=== PATIENT | male | born 1960 | race Caucasian/White ===

== ENCOUNTER 2024-08-02 22:14 | Emergency (ER) | payer BC ==
[~2024-08-02] VITALS: Ht 177.8 cm; Wt 90.7 kg
[2024-08-03 00:21] VITALS: BP 122/76; TEMP 98; O2SAT 98
== END 2024-08-03 00:22 | disposition home or self-care (01) ==
LOC: ER 22:14
DX: T83.012A Breakdown (mechanical) of nephrostomy catheter, initial encounter (principal); C64.9 Malignant neoplasm of unspecified kidney, except renal pelvis; R10.9 Unspecified abdominal pain; Y84.8 Other medical procedures as the cause of abnormal reaction of the patient, or of later complication, without mention of misadventure at the time of the procedure; Y92.89 Other specified places as the place of occurrence of the external cause
CPT/HCPCS: 74018; A4606; A4663